=== PATIENT | female | born 1940 | race Caucasian/White ===

== ENCOUNTER → 2016-06-21 | Outpatient (CLI) | payer MEDICARE ==
[~2016-06-21] MED LIST: CALC-603 PO; LEVO100T83 PO; MULT-934 PO; OMEG100016 PO; OMEG500C7 PO; [UNRECOGNIZED DRUG - CODE] PO
== END ==
LOC: IMA 08:08
PROVIDERS: ATTEND Family Medicine
DX: D48.61 Neoplasm of uncertain behavior of right breast (principal); R92.2 Inconclusive mammogram

== ENCOUNTER → 2016-06-29 | Outpatient (CLI) | payer MEDICARE ==
[~2016-06-29] MED LIST changes: +ASCO500T9 PO; +ATOR10TA64 PO; +CETI10CA19 PO; +LACT1CAP73 PO; +LEVO75TA10 PO; +LIDOCAINE 1% 30ml (STERI-PAK) ID ONE; +LIDOCAINE 2%/EPI 1:100,000 20ml MDV ONE; +NORMAL SALINE 250 ML IV ONE; +OMEG1CAP87 PO
== END ==
LOC: IMA 12:29
PROVIDERS: ATTEND Nurse Practitioner Family
DX: D05.11 Intraductal carcinoma in situ of right breast (principal); N64.59 Other signs and symptoms in breast; R92.8 Other abnormal and inconclusive findings on diagnostic imaging of breast
CPT/HCPCS: 19081; 88305; A4648; G0206; J7050; 88361

== ENCOUNTER 2016-07-06 06:21 | Day surgery (SDC) | payer MEDICARE ==
[~2016-07-06] VITALS: Ht 154.9 cm; Wt 58.9 kg
[~2016-07-06 06:21] MED LIST changes: -LEVO100T83 PO; -LIDOCAINE 1% 30ml (STERI-PAK) ID ONE; -LIDOCAINE 2%/EPI 1:100,000 20ml MDV ONE; -NORMAL SALINE 250 ML IV ONE; -OMEG100016 PO; -OMEG500C7 PO
--- OUTSIDE RECORDS SUMMARY | 2016-07-06 06:25 | XMS REPORT | Referral Summary ---
Author Author [facility], Family Medicine Organization [facility] Address Unknown Phone Unavailable Care Team Providers Care Benzene Still Utility Operator Name Role Phone Eva Leigh Primary Care Physician [phone] Encounter [facility] [id number] Date(s): 05/11/16 - 05/11/16 [facility] [address] [place] [address] Discharge Diagnosis: Right shoulder pain Discharge Diagnosis: Osteoporosis Discharge Diagnosis: Hyperlipidemia Discharge Diagnosis: Allergic rhinitis (disorder) Discharge Diagnosis: Pain of right heel Discharge Diagnosis: Peripheral neuropathy Discharge Diagnosis: Hypothyroidism Discharge Disposition: 01-Home or Self Care Attending Physician: Filemon Leigh MD Admitting Physician: Filemon Leigh MD Vital Signs Most recent to 1 oldest [Reference Range]: Peripheral Pulse 54 bpm Rate [60-100 bpm] *LOW* (05/11/16 10:45 AM) Blood Pressure 104/60 mmHg [90-140/60-90 mmHg] (05/11/16 10:45 AM) Problem List Condition Effective Dates Status Health Status Informant Allergic rhinitis Active (disorder)(Confirmed ) Allergic Active rhinitis(Confirmed) Basal cell Active cancer-facial(Confir med) Carpal tunnel Resolved syndrome Rt(Confirmed) Diverticulosis(Confi Active rmed) Dyslipidemia(Confirm Active ed) Hypercholesterolemia Active (Confirmed) Hyperlipidemia(Confi Active rmed) Hypothyroidism Active (disorder)(Confirmed ) Hypothyroidism(Confi Active rmed) Thyroid Active disease/goiter(Confi rmed) Varicella(Confirmed) Active Allergies, Adverse Reactions, Alerts No Known Medication Allergies Medications atorvastatin 10 mg oral tablet 10 mg 1 tabs, Oral, Bedtime (once a day), # 90 tabs, 3 Refill(s), Pharmacy: [facility], 1 tabs Oral Bedtime (once a day) Start Date: 05/31/15 Status: Ordered Calcium 600+D 1 tabs, Oral, BID, 0 Refill(s) Start Date: 02/02/14 Status: Ordered Fish Oil Oral, 0 Refill(s) Start Date: 02/06/14 Status: Ordered levothyroxine 75 mcg (0.075 mg) oral tablet 75 mcg 1 tabs, Oral, Daily, # 90 tabs, 1 Refill(s), Pharmacy: [facility] Mail [facility], 1 tabs Oral Daily,x90 days Start Date: 05/11/16 Stop Date: 11/07/16 Status: Ordered Misc Medication See Instructions, EYE PROMISE 1 DAILY, 0 Refill(s) Start Date: 05/11/16 Status: Ordered multivitamin Daily, take 1 tablet by oral route every day, 0 Refill(s) Start Date: 02/02/14 Status: Ordered Probiotic Formula caps, Oral, Daily, 0 Refill(s) Start Date: 02/06/14 Status: Ordered Vitamin C 500 mg oral tablet 1 tabs, Oral, Daily, 0 Refill(s) Start Date: 02/02/14 Status: Ordered ZyrTEC 10 mg oral tablet See Instructions, take by oral route every day, 0 Refill(s) Start Date: 02/02/14 Status: Ordered Results Hematology Most recent to 1 oldest [Reference Range]: WBC [4.8-10.8 5.1 10*3/uL 10*3/uL] (05/11/16 12:45 PM) RBC [4.00-5.20] 4.46 (05/11/16 12:45 PM) Hgb [12.0-16.0 13.9 gm/dL gm/dL] (05/11/16 12:45 PM) Hct [37.0-47.0 %] 42.0 % (05/11/16 12:45 PM) MCV [82.0-99.0 fL] 94.2 fL (05/11/16 12:45 PM) MCH [27.0-32.0 pg] 31.2 pg (05/11/16 12:45 PM) MCHC [32.0-36.0 33.1 gm/dL gm/dL] (05/11/16 12:45 PM) RDW [11.5-14.5 %] 12.7 % (05/11/16 12:45 PM) Platelet [150-400 144 10*3/uL 10*3/uL] *LOW* (05/11/16 12:45 PM) MPV [8.8-14.8 fL] 11.3 fL (05/11/16 12:45 PM) Immature 0.0 % Granulocytes (05/11/16 12:45 PM) [0.0-1.0 %] Neutrophils [51-75 49 % %] *LOW* (05/11/16 12:45 PM) Lymphocytes [20-46 39 % %] (05/11/16 12:45 PM) Monocytes [4-11 %] 9 % (05/11/16 12:45 PM) Eosinophils [0-4 %] 2 % (05/11/16 12:45 PM) Basophils [0-2 %] 0 % (05/11/16 12:45 PM) Neutro Absolute 2.51 [1.90-7.00] (05/11/16 12:45 PM) Lymph Absolute 1.98 [0.80-3.30] (05/11/16 12:45 PM) [place] Absolute 0.48 [0.30-1.00] (05/11/16 12:45 PM) Eos Absolute 0.09 [0.00-0.50] (05/11/16 12:45 PM) Baso Absolute 0.02 [0.00-0.20] (05/11/16 12:45 PM) Chemistry Most recent to 1 oldest [Reference Range]: Glucose Lvl [70-99 91 mg/dL mg/dL] (05/11/16 12:45 PM) Vitamin B12 Lvl 1038 pg/mL [213-816 pg/mL] *HI* (05/11/16 12:45 PM) Chol [0-199 mg/dL] 188 mg/dL (05/11/16 12:45 PM) Trig [0-149 mg/dL] 155 mg/dL *HI* (05/11/16 12:45 PM) HDL [40-84 mg/dL] 65 mg/dL (05/11/16 12:45 PM) LDL [0-130 mg/dL] 92 mg/dL (05/11/16 12:45 PM) VLDL Cholesterol 31 mg/dL [0-28 mg/dL] *HI* (05/11/16 12:45 PM) Cardiac Risk 2.9 [0.0-5.0] (05/11/16 12:45 PM) Immunizations Given and Recorded Vaccine Date Status Refusal Reason tetanus/diphth/pertuss (Tdap) adult/adol 02/06/14 Given tetanus/diphth/pertuss (Tdap) adult/adol 05/19/03 Recorded hepatitis A adult vaccine 03/16/14 Given influenza virus vaccine, inactivated1 02/07/16 Recorded pneumococcal 13-valent conjugate vaccine 02/06/14 Given pneumococcal 23-polyvalent vaccine 05/19/03 Recorded poliovirus vaccine, inactivated 03/16/14 Given 1Result Comment: [02/08/2016] GIVEN AT [facility] Procedures Procedure Date Related Diagnosis Body Site Colonoscopy1 05/07/12 Colonoscopy 05/07/08 Miscellaneous2 Tonsillectomy 110 [id number] see nex gen 2Cataract surg bilat - Mar. 2014, Apr 2015 Social History Social History Type Response Smoking Status Never smoker Assessment and Plan Extracted from: Title: CRMMP Author: Filemon Leigh MD Date: 05/11/16 Impression and Plan Diagnosis Allergic rhinitis (disorder) (FTQ32-WA J30.9, Discharge, Medical). Hyperlipidemia (MUS00-OX E78.5, Discharge, Medical). Hypothyroidism (WFA02-MC E03.9, Discharge, Medical). Osteoporosis (NYX85-RH M81.0, Discharge, Medical). Pain of right heel (XUC27-UY M79.671, Discharge, Medical). Peripheral neuropathy (WPW59-OT G62.9, Discharge, Medical). Right shoulder pain (XZX99-XX M25.511, Discharge, Medical). Orders Orders (Selected) Outpatient Orders Future (On Hold) CBC w/ Differential: DEXA Axial Skeleton, BD Bone Density: Fasting Lipid Profile: Fasting Lipid Profile: Glucose Lvl: Vitamin B12 Level: Prescriptions Prescribed levothyroxine 75 mcg (0.075 mg) oral tablet: 75 mcg=1 tabs, Oral, Daily, for 90 days, 90 tabs, 1 Refill(s).
--- OUTSIDE RECORDS SUMMARY | 2016-07-06 06:25 | XMS REPORT | Referral Summary ---
Author Author [facility], Family Medicine Organization [facility] Address Unknown Phone Unavailable Care Team Providers Care Lead Caster Name Role Phone Eva Leigh Primary Care Physician [phone] Encounter [facility] Date(s): 02/09/15 - 02/09/15 [facility] [address] [place] [id number] Discharge Diagnosis: Idiopathic hypothyroidism Discharge Diagnosis: Left knee pain Discharge Diagnosis: Mixed hyperlipidemia Discharge Diagnosis: Dorsalgia of lumbar region Discharge Diagnosis: FH: stroke Discharge Disposition: 01-Home or Self Care Attending Physician: Filemon Leigh MD Admitting Physician: Filemon Leigh MD Vital Signs Most recent to 1 oldest [Reference Range]: Temperature Tympanic 36.1 degC [36.6-38.1 degC] *LOW* (02/09/15 8:42 AM) Peripheral Pulse 62 bpm Rate [60-100 bpm] (02/09/15 8:42 AM) Blood Pressure 128/60 mmHg [90-140/60-90 mmHg] (02/09/15 8:42 AM) Problem List Condition Effective Dates Status Health Status Informant Allergic rhinitis Active (disorder)(Confirmed ) Allergic Active rhinitis(Confirmed) Basal cell Active cancer-facial(Confir med) Carpal tunnel Resolved syndrome Rt(Confirmed) Diverticulosis(Confi Active rmed) Dyslipidemia(Confirm Active ed) Hypercholesterolemia Active (Confirmed) Hyperlipidemia(Confi Active rmed) Hypothyroidism Active (disorder)(Confirmed ) Hypothyroidism(Confi Active rmed) Thyroid Active disease/goiter(Confi rmed) Varicella(Confirmed) Active Allergies, Adverse Reactions, Alerts No Known Medication Allergies Medications Calcium 600+D 1 tabs, Oral, BID, 0 Refill(s) Start Date: 02/02/14 Status: Ordered Fish Oil Oral, 0 Refill(s) Start Date: 02/06/14 Status: Ordered Lutein Oral, Daily, 0 Refill(s) Start Date: 02/09/15 Status: Ordered multivitamin Daily, take 1 tablet by oral route every day, 0 Refill(s) Start Date: 02/02/14 Status: Ordered Probiotic Formula caps, Oral, Daily, 0 Refill(s) Start Date: 02/06/14 Status: Ordered Synthroid 88 mcg (0.088 mg) oral tablet 88 mcg 1 tabs, Oral, Daily, DUE FOR APPT WITH DR LEIGH AND LAB, # 90 tabs, 0 Refill(s), Pharmacy: [facility], 1 tabs Oral Daily,Instr:DUE FOR APPT WITH DR LEIGH AND LAB Start Date: 01/25/15 Status: Ordered Vitamin C 0 Refill(s) Start Date: 02/02/14 Status: Ordered Vitamin C 500 mg oral tablet 1 tabs, Oral, Daily, 0 Refill(s) Start Date: 02/02/14 Status: Ordered ZyrTEC 10 mg oral tablet See Instructions, take by oral route every day, 0 Refill(s) Start Date: 02/02/14 Status: Ordered Results Chemistry Most recent to 1 oldest [Reference Range]: Chol [0-199 mg/dL] 284 mg/dL *HI* (02/09/15 9:40 AM) Trig [0-149 mg/dL] 93 mg/dL (02/09/15 9:40 AM) HDL [40-84 mg/dL] 77 mg/dL (02/09/15 9:40 AM) LDL [0-130 mg/dL] 188 mg/dL *HI* (02/09/15 9:40 AM) VLDL Cholesterol 19 mg/dL [0-28 mg/dL] (02/09/15 9:40 AM) Cardiac Risk 3.7 [0.0-5.0] (02/09/15 9:40 AM) TSH with Reflex Free 0.87 T4 [0.35-4.94] (02/09/15 9:40 AM) Immunizations Vaccine Date Refusal Reason tetanus/diphth/pertuss (Tdap) adult/adol 02/06/14 tetanus/diphth/pertuss (Tdap) adult/adol 05/19/03 hepatitis A adult vaccine 03/16/14 pneumococcal 13-valent conjugate vaccine 02/06/14 pneumococcal 23-polyvalent vaccine 05/19/03 poliovirus vaccine, inactivated 03/16/14 Procedures Procedure Date Related Diagnosis Body Site Colonoscopy1 05/07/12 Colonoscopy 05/07/08 Tonsillectomy 110 [id number] see nex gen Social History Social History Type Response Smoking Status Never smoker Assessment and Plan Extracted from: Title: CRMMP Author: Filemon Leigh MD Date: 02/10/15 Assessment/Plan Dorsalgia of lumbar region FH: stroke Idiopathic hypothyroidism Left knee pain Mixed hyperlipidemia Osteoarthritis suspected in both left knee and lumbar back regions. Discussed options for management. Consider Tylenol as a first line medication. We'll check TSH to monitor her thyroid replacement. We'll also check lipids. If these are elevated, consider statin therapy in view of her stroke risk. We also discussed aspirin risk versus benefit. At this point I think that's a bit of a close call and after discussion she likely will not take aspirin. Follow-up one year or sooner as needed/based on results.
--- OUTSIDE RECORDS SUMMARY | 2016-07-06 06:25 | XMS REPORT | Referral Summary ---
Author Author [facility], Family Medicine Organization [facility] Address Unknown Phone Unavailable Care Team Providers Care Grades 1 Thru 6 Visiting Teacher Name Role Phone Eva Leigh Primary Care Physician [phone] Encounter [facility] Date(s): 04/30/15 - 04/30/15 [facility], [address] [place] [address] Discharge Diagnosis: Cough Discharge Diagnosis: Hyperlipidemia Discharge Diagnosis: Numbness of feet Discharge Disposition: 01-Home or Self Care Attending Physician: Filemon Leigh MD Admitting Physician: Filemon Leigh MD Vital Signs Most recent to 1 oldest [Reference Range]: Temperature Tympanic 36.5 degC [36.6-38.1 degC] *LOW* (04/30/15 11:23 AM) Peripheral Pulse 66 bpm Rate [60-100 bpm] (04/30/15 11:23 AM) Blood Pressure 144/63 mmHg [90-140/60-90 mmHg] *HI* (04/30/15 11:23 AM) Problem List Condition Effective Dates Status [...] tabs, Oral, Bedtime (once a day), # 30 tabs, 1 Refill(s), [id number], 1 tabs Oral Bedtime (once a day) Start Date: 02/25/15 Status: Ordered Calcium 600+D 1 tabs, Oral, [...] LAB, # 90 tabs, 0 Refill(s), [facility], 1 tabs Oral Daily,Instr:DUE FOR APPT WITH DR LEIGH AND LAB Start Date: 01/25/15 Status: Ordered Vitamin C 500 mg oral tablet 1 tabs, Oral, Daily, 0 Refill(s) Start Date: 02/02/14 Status: Ordered ZyrTEC 10 mg oral tablet See Instructions, take by oral route every day, 0 Refill(s) Start Date: 02/02/14 Status: Ordered Results No data available for this section Immunizations Vaccine Date Refusal Reason tetanus/diphth/pertuss (Tdap) adult/adol 02/06/14 tetanus/diphth/pertuss (Tdap) adult/adol 05/19/03 hepatitis A adult vaccine 03/16/14 pneumococcal 13-valent conjugate vaccine 02/06/14 pneumococcal 23-polyvalent vaccine 05/19/03 poliovirus vaccine, inactivated 03/16/14 Procedures Procedure Date Related Diagnosis Body Site Colonoscopy1 05/07/12 Colonoscopy 05/07/08 Miscellaneous2 Tonsillectomy 110 [id number] see nex gen 2Cataract surg bilat - 2014, Apr 2015 Social History Social History Type Response Smoking Status Never smoker Assessment and Plan Extracted from: Title: Office Visit Note Author: Filemon Leigh MD Date: 04/30/15 Assessment/Plan Cough Hyperlipidemia On atorvastatin. We will recheck fasting lipids. Ordered: Lipid Panel Numbness of feet I think is likely a viral upper respiratory infection. We discussed symptomatic management and signs and symptoms to watch for. Follow-up if symptoms progress. We discussed possible peripheral neuropathy and will check labs to include A1c , TSH, and vitamin B-12 level. She'll be coming in soon for fasting lipids will plan to obtain those at the same time.
--- OUTSIDE RECORDS SUMMARY | 2016-07-06 06:25 | XMS REPORT | Referral Summary ---
Author Author [facility], Family Medicine Organization [facility] Address Unknown Phone Unavailable Care Team Providers Care Accounts Receivable Coordinator Name Role Phone Eva Leigh Primary Care Physician [phone] Encounter [facility] Date(s): 02/09/15 - 02/09/15 [facility] [address] [place] [address] Discharge Diagnosis: Idiopathic hypothyroidism Discharge Diagnosis: Left [...] LAB, # 90 tabs, 0 Refill(s), Pharmacy: [facility], 1 tabs Oral Daily,Instr:DUE [...] Site Colonoscopy1 05/07/12 Colonoscopy 05/07/08 Tonsillectomy 110 [id number] see nex gen Social History Social History Type Response Smoking Status Never smoker Assessment and Plan No data available for this section
--- OUTSIDE RECORDS SUMMARY | 2016-07-06 06:25 | XMS REPORT | Referral Summary ---
Author Author [facility], Family Medicine Organization [facility] Address Unknown Phone Unavailable Care Team Providers Care Port Warden Name Role Phone Eva Leigh Primary Care Physician [phone] Encounter [facility] Date(s): 02/09/15 - 02/09/15 [facility] [address] [place] [id number] Discharge Diagnosis: Idiopathic hypothyroidism Discharge Diagnosis: Left [...] 90 tabs, 0 Refill(s), Pharmacy: [facility], 1 tabs Oral [...] Site Colonoscopy1 05/07/12 Colonoscopy 05/07/08 Tonsillectomy 110 [id number] see nex gen Social History Social History [...]
--- OUTSIDE RECORDS SUMMARY | 2016-07-06 06:25 | XMS REPORT | Referral Summary ---
Author Author [facility], Family Medicine Organization [facility] Address Unknown Phone Unavailable Care Team Providers Care Drink Box Mechanic Name Role Phone Eva Leigh Primary Care Physician [phone] Encounter [facility] Date(s): 02/09/15 - 02/09/15 [facility] [address] [place] [address] Discharge Diagnosis: Idiopathic hypothyroidism Discharge Diagnosis: Left [...] LAB, # 90 tabs, 0 Refill(s), Pharmacy: [facility], 1 tabs Oral [...] Site Colonoscopy1 05/07/12 Colonoscopy 05/07/08 Tonsillectomy 110 [id number] see nex gen Social History Social History [...]
--- OUTSIDE RECORDS SUMMARY | 2016-07-06 06:25 | XMS REPORT | Referral Summary ---
Author Author [facility], Family Medicine Organization [facility] Address Unknown Phone Unavailable Care Team Providers Care Assembling Inspector Name Role Phone Eva Leigh Primary Care Physician [phone] Encounter [facility] Date(s): 11/22/15 - 11/22/15 [facility] [address] [place] [address] Discharge Diagnosis: Insect bites Discharge Diagnosis: Left ear impacted cerumen Discharge Disposition: 01-Home or Self Care Attending Physician: Filemon Leigh MD Admitting Physician: Filemon Leigh MD Vital Signs Most recent to 1 oldest [Reference Range]: Temperature Tympanic 36.1 degC [36.6-38.1 degC] *LOW* (11/22/15 11:22 AM) Peripheral Pulse 68 bpm Rate [60-100 bpm] (11/22/15 11:22 AM) Blood Pressure 125/67 mmHg [90-140/60-90 mmHg] (11/22/15 11:22 AM) Problem List Condition Effective Dates Status [...] day), # 90 tabs, 3 Refill(s), Pharmacy: [facility], 1 tabs Oral Bedtime (once a day) Start Date: 05/31/15 Status: Ordered Calcium 600+D 1 tabs, Oral, BID, 0 Refill(s) Start Date: 02/02/14 Status: Ordered Fish Oil Oral, 0 Refill(s) Start Date: 02/06/14 Status: Ordered levothyroxine 75 mcg (0.075 mg) oral tablet See Instructions, TAKE ONE TABLET BY MOUTH DAILY, # 60 tabs, eRx: [facility] #[id number], TAKE ONE TABLET BY MOUTH DAILY Start Date: 08/30/15 Status: Ordered Lutein Oral, Daily, 0 Refill(s) [...] Colonoscopy1 05/07/12 Colonoscopy 05/07/08 Miscellaneous2 Tonsillectomy 110 [id number] see nex gen 2Cataract surg bilat - 2014, Apr 2015 Social History Social History Type Response Smoking Status Never smoker Assessment and Plan Extracted from: Title: Acute OV-Insect Bites Author: Filemon Leigh MD Date: 11/22/15 Impression and Plan Diagnosis Left ear impacted cerumen (LBE68-OT H61.22, Discharge, Medical). Insect bites (RSC10-UB W57.XXXA, Discharge, Medical).
--- OUTSIDE RECORDS SUMMARY | 2016-07-06 06:26 | XMS REPORT | Referral Summary ---
Author Author [facility], Family Medicine Organization [facility] Address Unknown Phone Unavailable Care Team Providers Care Nursing Assoc Name Role Phone Eva Leigh Primary Care Physician [phone] Encounter [facility] Date(s): 02/09/15 - 02/09/15 [facility] [address] [place] [address] Discharge Diagnosis: Idiopathic hypothyroidism Discharge Diagnosis: Left [...] LAB, # 90 tabs, 0 Refill(s), Pharmacy: [facility], 1 tabs Oral [...] Site Colonoscopy1 05/07/12 Colonoscopy 05/07/08 Tonsillectomy 110 [id number] see nex gen Social History Social History [...]
--- OUTSIDE RECORDS SUMMARY | 2016-07-06 06:26 | XMS REPORT | Referral Summary ---
Author Author [facility], Family Medicine Organization [facility] Address Unknown Phone Unavailable Care Team Providers Care Cosmetologist Name Role Phone Eva Leigh Primary Care Physician [phone] Encounter [facility] Date(s): 02/09/15 - 02/09/15 [facility] [address] [place] [address] Discharge Diagnosis: Idiopathic hypothyroidism Discharge Diagnosis: [...] LAB, # 90 tabs, 0 Refill(s), Pharmacy: [facility], 1 tabs Oral Daily,Instr:DUE [...] Site Colonoscopy1 05/07/12 Colonoscopy 05/07/08 Tonsillectomy 110 [id number] see nex gen Social History Social History [...]
--- OUTSIDE RECORDS SUMMARY | 2016-07-06 06:26 | XMS REPORT | Referral Summary ---
Author Author [facility], Family Medicine Organization [facility] Address Unknown Phone Unavailable Care Team Providers Care Manager Solution Name Role Phone Eva Leigh Primary Care Physician [phone] Encounter [facility] Date(s): 02/09/15 - 02/09/15 [facility] [address] [place] [address] Discharge Diagnosis: Idiopathic hypothyroidism Discharge Diagnosis: Left [...] LAB, # 90 tabs, 0 Refill(s), Pharmacy: [facility], 1 tabs Oral [...] Site Colonoscopy1 05/07/12 Colonoscopy 05/07/08 Tonsillectomy 110 [id number] see nex gen Social History Social History Type Response Smoking Status Never smoker Assessment and Plan No data available for this section
[2016-07-06] MEDS ORDERED: LR 1,000 ML IV SCH (07:00)
[2016-07-06] MEDS ORDERED: LIDOCAINE 1% (10mg/ml) 2ml SDV INJ ONE (07:00)
[2016-07-06 07:19] VITALS: BP 124/64; PULSE 62; RESP 14; TEMP 97.7; O2SAT 100
[2016-07-06 07:20] VITALS: Ht 154.9 cm; Wt 58.9 kg
--- NOTE | 2016-07-06 07:28 | ANESPREOP ---
Anesthesia Record Date and Time DATE: 07/06/16 TIME: 07:26 Pre-Op Diagnosis crcs Proposed Surgical Procedure COLONOSCOPY Allergies: Coded Allergies: No Known Drug Allergies (Verified Allergy, Unknown, 07/06/16) Ht/Wt/BMI Height: 5 ' 1.00 " Weight: 58.900 kg BMI: 24.5 kg/m2 Vital Signs Date Time Temp Pulse Resp B/P Pulse Ox O2 Delivery O2 Flow Rate FiO2 07/06/16 07:19 97.7 62 14 124/64 100 Room Air Medications Inpatient Medications Current Medications Medications (Trade) Dose Ordered Sig/Willa Start Time Stop Time Status Last Admin Dose Admin Lactated Ringer's (Lactated Ringers) 1,000 ml @ 30 mls/hr Q24H 07/06/16 07:00 Ascorbic Acid (Vitamin C) 250 Mg Tab.chew, 250 MG PO DAILY, (Reported) Ascorbic Acid (Vitamin C) 500 Mg Tablet, 1 TAB PO DAILY, (Reported) Atorvastatin Calcium (Atorvastatin Calcium) 10 Mg Tablet, 1 TAB PO DAILY, ( Reported) Calcium (Calcium) 500 Mg Tablet, 500 MG PO BID, (Reported) Cetirizine HCl (Zyrtec) 10 Mg Capsule, 1 CAP PO HS, (Reported) Lactobacillus Combination No.4 (Probiotic) 1 Each Capsule, 1 CAP PO DAILY, ( Reported) Levothyroxine Sodium (Levothyroxine Sodium) 75 Mcg Tablet, 1 TAB PO DAILY, ( Reported) Multivitamins (Multi-Day Vitamin) 1 Tab Tablet, 1 TAB PO DAILY, (Reported) [place]-3 Fatty Acids/Fish Oil (Fish Oil 1,200 mg Softgel) 1 Each Capsule, 2 CAP PO DAILY, (Reported) Currently on Beta Selene: No Medical/Surgical History Anesthesia PMH: Reports: Arthritis (FINGERS), Cancer (BASIL CELL-FOREHEAD 2006) , Thyroid Disease (HYPOTHYROID), Denies: *Diabetes, Anesthesia Reactions (NO AIRWAY ISSUES KNOWN), Clotting Problems, Glaucoma, Malignant Hyperthermia Smoking Status: Never smoker Has pt. smoked today?: No Use Chewing Tobacco?: No Second Hand Exposure: No Substance Use Type: does not use Substance last used: unknown Alcohol Intake: a few times a month HX of Last Menstrual Period: AROUND LATE 40'S Past Surgical History Orthopedic Surgeries: Abdominal Surgeries: Genitourinary Surgeries: Cardiac Surgeries: Endocrine Surgeries: Reproductive Surgeries: Neurological Surgeries: Ear Surgeries: Nose Surgeries: Throat Surgeries: Yes - TONSILLECTOMY Other Surgeries: Yes - MOHS Anesthesia Adverse Reactions: FOUND none Family Hx of Anesthesia Advers: none Hx of Motion Sickness: No Pertinent Findings EKG Rhythm: Sinus Rhythm Physical Exam Respiratory: Bilat breath sounds equal, Lungs clear Cardiovascular: FOUND Regular rate, rhythm, FOUND No murmur Airway Assessment Mallampati Score: I TMD: 3 Fingerbreadths Neck Extension: Good Overall Assessment: No Airway Concerns ASA: 2 Plan Anesthesia Plan: TIVA Discussion Discussed risks/options/alternatives of anesthesia and questions answered. Patient consents. Nursing pain assessment noted. Attestation Statement Prior to the delivery of any anesthetic medication, I examined the patient, developed the plan, obtained the patient's consent and discussed the risk and benefits of the procedure with the patient/guardian. ANGEL MEDRANO CRNA Jul 06, 2016 07:27
[2016-07-06] MEDS ORDERED: PROPOFOL 500mg 50 ML IV ONE (08:24)
[2016-07-06] MEDS ORDERED: LIDOCAINE 1% (10mg/ml) 2ml SDV ONE (08:24)
[2016-07-06 09:08] VITALS: BP 113/57; PULSE 65; RESP 19; TEMP 98.6; O2SAT 96
[2016-07-06 09:15] VITALS: BP 106/55; PULSE 62; RESP 16; O2SAT 97
[2016-07-06 09:30] VITALS: BP 116/61; PULSE 57; RESP 16; O2SAT 99
[2016-07-06 09:45] VITALS: BP 124/63; PULSE 58; RESP 16; O2SAT 98
--- NOTE | 2016-07-06 09:54 | ANESPO ---
Post-Op Note Date 07/06/16 Time: 09:53 Status Pt Participated in Evaluation: Pt participated in person Vital Signs Date Time Temp Pulse Resp B/P Pulse Ox O2 Delivery O2 Flow Rate FiO2 07/06/16 09:15 62 16 106/55 97 Room Air 07/06/16 09:08 98.6 Respiratory Function: Airway patent, Regular respirations Cardiovascular Function: Regular pulse Mental Status: Alert/oriented Pain Level Intensity: 0 Hydration: Taking po fluids Complications during Recovery None apparent Post-Anesthesia Notes pt. [email or web address] Follow-Up Instructions Instructions Per Surgeon Additional Information none ANGEL MEDRANO CRNA Jul 06, 2016 09:54
--- NOTE | 2016-07-06 12:10 | OPNOTEF ---
DATE OF PROCEDURE 07/06/2016 SURGEON Arjun Dumas MD PREOPERATIVE DIAGNOSIS Family history for colon cancer, colorectal cancer surveillance. . POSTOPERATIVE DIAGNOSIS Family history for colon cancer, colorectal cancer surveillance, polyp x 2 within rectal vault, polyp x 1 at 60 cm from the anal verge. PROCEDURES Colonoscopy with polypectomies via cold biopsy technique. ANESTHESIA TIVA BRIEF HISTORY/INDICATIONS Mrs. Cooper is a 76-year-old female who has family history for colon cancer within several second-degree relatives. The patient presents today to undergo a colonoscopy for further evaluation. For completeness, please refer to notes in the patient's chart. FINDINGS Upon colonoscopy there was no evidence for angiodysplastic lesions, diverticula or nell allergies. The patient was found have a total of three colonic polyps. Two were within the rectal vault and a third was located at 60 cm from the anal verge. These polyps were on the order of 5-6 mm in diameter and removed in their entirety via cold biopsy technique. DESCRIPTION OF PROCEDURE After informed consent was obtained, the patient was brought to the endoscopy suite and placed on the table in left lateral decubitus position. The patient subsequently underwent total intravenous anesthesia by the nurse black top paver operator per my request. Formal time-out was then completed. Next, digital examination was performed. Normal sphincter tone. No rectal mass was appreciated. An Olympus colonoscope was inserted in the anus and advanced with the lumen of the colon under direct visualization at all times till the cecum was ascertained. Triangulation of taenia coli, ileocecal valve and appendiceal lumen were all visualized. Scope was slowly withdrawn, again maintaining visualization of the lumen at all times. As the scope was being slowly withdrawn, a polyp was identified at 60 cm from the anal verge that was on the order of 5-6 mm in diameter. This polyp was grasped and removed in its entirety via cold biopsy technique and submitted for pathologic evaluation. Colonoscope was then continued be slowly withdrawn. As stated above, there was no evidence for angiodysplastic lesions, diverticula or nell allergies. Once the colonoscope was withdrawn back to the rectal vault, one could see two additional/synchronous polyps that were also fairly diminutive in nature on the order of about 5-6 mm in diameter. These appeared to be hyperplastic in nature but nonetheless were grasped and removed in their entirety via cold biopsy technique. J-maneuver was then performed. No worrisome perianal pathology was noted. Scope was allowed to straighten and withdrawn through the anal verge. The patient tolerated the procedure without difficulty and was sent back to the preop area in stable condition. Await the biopsy results from today's polypectomies and proceed accordingly with further recommendations thereafter. OTTO
== END 2016-07-06 09:58 | disposition home or self-care (01) ==
LOC: NSC 06:21
PROVIDERS: ATTEND Surgery
DX: Z12.11 Encounter for screening for malignant neoplasm of colon (principal); K63.5 Polyp of colon; K62.1 Rectal polyp; Z80.0 Family history of malignant neoplasm of digestive organs; E78.00 Pure hypercholesterolemia, unspecified; E03.9 Hypothyroidism, unspecified; J30.9 Allergic rhinitis, unspecified; Z79.899 Other long term (current) drug therapy
CPT/HCPCS: 45380; J7120

== ENCOUNTER 2016-07-17 06:55 | Outpatient (CLI) | payer MEDICARE ==
[2016-07-17] VITALS (19 sets, daily range): BP systolic 119–168; BP diastolic 65–101; PULSE 54–69; RESP 13–16; TEMP 97–98; O2SAT 93–100; Ht 154.9 cm; Wt 60.3 kg
[~2016-07-17] VITALS: Ht 154.9 cm; Wt 60.3 kg
[2016-07-17] MEDS ORDERED: LIDOCAINE 1% (10mg/ml) 2ml SDV INJ ONE (07:00)
[2016-07-17] MEDS ORDERED: LR 1,000 ML IV SCH ×2 (07:00→11:32)
[2016-07-17 07:53] LABS: BASOPHILS % (AUTO) 0.8 % (0-2); EOSINOPHILS # (AUTO) 0.1 T/MM3 (0-0.5); EOSINOPHILS % (AUTO) 2.8 % (0-4); HCT - HEMATOCRIT 41.5 % (36-46); HGB - HEMOGLOBIN 13.7 GM/DL (12-16); IMMATURE GRANULOCYTE # (AUTO) 0.01 T/MM3 (0.00-0.03); IMMATURE GRANULOCYTE % (AUTO) 0.3 % (0.0-0.5); LYMPHOCYTES # (AUTO) 1.7 T/MM3 (1-4.8); LYMPHOCYTES % (AUTO) 42.1 % (23-45); MEAN CORPUSCULAR HGB 30.2 UUG (26-34); MEAN CORPUSCULAR VOLUME 91.4 UM3 (80-100); MEAN PLATELET VOLUME 10.5 UM3 (9.4-12.4); MONOCYTES # (AUTO) 0.4 T/MM3 (0-0.8); MONOCYTES % (AUTO) 9.3 % (0-9.0); NEUTROPHILS #(AUTO)-ABSOLUTE 1.8 T/MM3 (1.8-7.7); NEUTROPHILS % (AUTO) 44.7 % (33-66); RED BLOOD COUNT 4.54 M/MM3 (4.00-5.20)
[2016-07-17 08:02] LABS: ANION GAP 10 MEQ/L (5-15); BUN/CREATININE RATIO 12 RATIO (6-26); CALCIUM 9.5 MG/DL (8.4-10.2); CHLORIDE 106 MEQ/L (98-107); CO2 - CARBON DIOXIDE 28 MEQ/L (22-30); CREATININE 0.9 MG/DL (0.7-1.2); GLOMERULAR FILTRATION RATE 61; GLUCOSE 95 MG/DL (65-110); POTASSIUM 3.8 MEQ/L (3.6-5); SODIUM 144 MEQ/L (134-144)
[2016-07-17] MEDS ORDERED: LIDOCAINE 1% 30ml (STERI-PAK) ONE (09:07)
--- NOTE | 2016-07-17 10:18 | DI ---
Indication: The purpose of this study is to localize the sentinel lymph node(s) for purposes of surgical planning. Procedure:NM LYMPHOSCINTIGRAPHY LYMPHOSCINTIGRAPHY: Technique: After discussing the details of the procedure, including the risks, the patient wished to proceed. Informed consent was obtained. A preprocedural pause was performed to confirm the correct patient and procedure. Approximately 0. 25 mCi of Tc-99m sulfur colloid was injected intradermally in four periareolar locations in the right breast. A total of approximately 1 mCi of Tc-99m sulfur colloid was injected. Anterior planar images were subsequently obtained. Findings: The 4 intradermal injection sites are visualized as intense focal uptake in the right breast region. Impression: Technically successful periareolar injections for the purpose of lymphoscintigraphy. Manuel Dawkins RPA/NIKOLAS performed this under my personal supervision. .
--- NOTE | 2016-07-17 11:19 | ANESPREOP ---
Anesthesia Record Date and Time DATE: 07/17/16 TIME: 11:17 Pre-Op Diagnosis Right Breast Cancer Proposed Surgical Procedure RT BREST LUMPECTOMY Allergies: Coded Allergies: No Known Drug Allergies (Verified Allergy, Unknown, 07/06/16) Ht/Wt/BMI Height: 5 ' 1.00 " Weight: 60.300 kg BMI: 25.1 kg/m2 Vital Signs Date Time Temp Pulse Resp B/P Pulse Ox O2 Delivery O2 Flow Rate FiO2 07/17/16 07:15 98.0 57 14 133/87 98 Room Air Medications Inpatient Medications Current Medications Medications (Trade) Dose Ordered Sig/Willa Start Time Stop Time Status Last Admin Dose Admin Lactated Ringer's (Lactated Ringers) 1,000 ml @ 30 mls/hr Q24H 07/17/16 07:00 07/17/16 10:12 30 MLS/HR Ascorbic Acid (Vitamin C) 250 Mg Tab.chew, 250 MG PO DAILY, (Reported) Last Taken: on 07/10/16 Ascorbic Acid (Vitamin C) 500 Mg Tablet, 1 TAB PO DAILY, (Reported) Last Taken: on 07/10/16 Atorvastatin Calcium (Atorvastatin Calcium) 10 Mg Tablet, 1 TAB PO DAILY, (Reported) Last Taken: on 07/16/16 Calcium (Calcium) 500 Mg Tablet, 500 MG PO BID, ( Reported) Last Taken: on 07/10/16 Cetirizine HCl (Zyrtec) 10 Mg Capsule, 1 CAP PO HS, (Reported) Last Taken: on 07/10/16 Lactobacillus Combination No.4 (Probiotic) 1 Each Capsule, 1 CAP PO DAILY, (Reported) Last Taken: on 07/10/16 Levothyroxine Sodium (Levothyroxine Sodium) 75 Mcg Tablet, 1 TAB PO DAILY, (Reported) Last Taken: on 07/17/16 0600 Multivitamins (Multi-Day Vitamin) 1 Tab Tablet , 1 TAB PO DAILY, (Reported) Last Taken: on 07/10/16 Bancroft-3 Fatty Acids/Fish Oil (Fish Oil 1,200 mg Softgel) 1 Each Capsule, 2 CAP PO DAILY, (Reported) Last Taken: on 07/10/16 Currently on Beta Selene: No Medical/Surgical History Anesthesia PMH: Reports: Arthritis (FINGERS), 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), Thyroid Disease (HYPOTHYROID), Denies: *Diabetes, Anesthesia Reactions (NO AIRWAY ISSUES KNOWN), Clotting Problems, Glaucoma, Malignant Hyperthermia, Renal Disease, Sleep Apnea Smoking Status: Never smoker Use Chewing Tobacco?: No Second Hand Exposure: No Substance Use Type: does not use Substance last used: unknown Alcohol Intake: a few times a month Past Surgical History Orthopedic Surgeries: Abdominal Surgeries: Genitourinary Surgeries: Cardiac Surgeries: Endocrine Surgeries: Reproductive Surgeries: Neurological Surgeries: Ear Surgeries: Nose Surgeries: Throat Surgeries: Yes - TONSILLECTOMY Other Surgeries: Yes - MOHS-C SCOPES Anesthesia Adverse Reactions: FOUND none Pertinent Findings Laboratory Tests 07/17/16 07:22 EKG Rhythm: Sinus Rhythm Physical Exam Respiratory: Bilat breath sounds equal, Lungs clear Cardiovascular: FOUND Regular rate, rhythm, FOUND No murmur Airway Assessment Mallampati Score: I TMD: 3 Fingerbreadths Neck Extension: Good Overall Assessment: No Airway Concerns ASA: 3 Plan Anesthesia Plan: LMA Discussion Discussed risks/options/alternatives of anesthesia and questions answered. Patient consents. Nursing pain assessment noted. Present: Spouse Attestation Statement Prior to the delivery of any anesthetic medication, I examined the patient, developed the plan, obtained the patient's consent and discussed the risk and benefits of the procedure with the patient/guardian. BRAYAN SEBASTIAN CRNA Jul 17, 2016 11:19
[2016-07-17] MEDS ORDERED: PROPOFOL 200mg 20 ML IV ONE (11:35)
[2016-07-17] MEDS ORDERED: SEVOFLURANE 250 ML LIQUID IH ONE (11:36)
[2016-07-17] MEDS ORDERED: GLYCOPYRROLATE 0.4mg/2ml INJECTION ONE (11:41)
[2016-07-17] MEDS ORDERED: ONDANSETRON 4mg/2ml INJECTION IV PRN ×2 (11:45→12:15)
[2016-07-17] MEDS ORDERED: METOCLOPRAMIDE 10mg/2ml INJECTION IV PRN (11:45)
[2016-07-17] MEDS ORDERED: MORPHINE SULFATE 4 MG SYRINGE IV PRN (11:45)
[2016-07-17] MEDS ORDERED: HYDROCODONE/APAP 5 mg/325 mg TABLET PO PRN (11:45)
[2016-07-17] MEDS ORDERED: FENTANYL 100mcg/2ml INJECTION ONE (11:51)
[2016-07-17] MEDS ORDERED: BUPIVACAINE 0.25%/EPI 1:200,000 30ml SDV ONE (11:55)
[2016-07-17] MEDS ORDERED: HYDROMORPHONE 2mg/ml INJECTION IV PRN (12:15)
--- NOTE | 2016-07-17 12:57 | GSPOSTPN ---
Procedure Procedure Date: Jul 17, 2016 Surgeon: Alesia Assisting Surgeon: Devin Mares Anesthesia: Local, GETA ASA: 3 Procedure Right breast needle localized lumpectomy with [place] lymph node biopsy GS Diagnosis Postop Diagnosis Right breast cancer, [place] lymph node negative on frozen section Complications Complications Estimated Blood Loss See Anesthesia Record. Vital Signs See Anesthesia and PACU record. PETRA MARES [facility] REPORTER Jul 17, 2016 12:57
[2016-07-17] MEDS ORDERED: IBUP-1724 PO (13:02)
[2016-07-17] MEDS ORDERED: DOCU100C PO (13:02)
[2016-07-17] MEDS ORDERED: HYDR-4246 PO (13:02)
--- NOTE | 2016-07-17 13:37 | NUR ---
ARRIVED PT ARRIVED TO ROOM 132 VIA CART WITH CHYNA LOERA. PT MOVED HERSELF FROM THE CART TO THE BED WITH MINIMAL ASSIST. PT ON ROOM AIR. IV FLUIDS INFUSING.
--- NOTE | 2016-07-17 14:14 | ANESPO ---
Post-Op Note Date 07/17/16 Time: 14:13 Status Pt Participated in Evaluation: Pt participated by phone Vital Signs Date Time Temp Pulse Resp B/P Pulse Ox O2 Delivery O2 Flow Rate FiO2 07/17/16 13:34 97.0 07/17/16 13:32 58 16 99 Nasal Cannula 6.00 07/17/16 13:30 141/70 Respiratory Function: Airway patent, Regular respirations Cardiovascular Function: Regular pulse Mental Status: Alert/oriented Pain Level Intensity: 3 Hydration: Taking po fluids Complications during Recovery None apparent Follow-Up Instructions Instructions Per Surgeon CHAVO ALBERTO CRNA Jul 17, 2016 14:13
--- NOTE | 2016-07-17 18:30 | NUR ---
DISCHARGE PATIENT IS ALERT AND ORIENTED X3. PATIENT VITALS ARE STABLE AND PATIENT IS ON ROOM AIR. PATIENT DENIES PAIN, CP, NAUSEA, AND SOA. PATIENT DISCHARGE INSTRUCTIONS INCLUDE: NEW MEDICATIONS, CONTINUED MEDICATIONS, FOLLOW UP APPOINTMENT, REASONS TO CALL DOCTOR AND/OR SEEK IMMEDIATE CARE, INCISION CARE, SIGNS AND SYMPTOMS OF INFECTION, ACTIVITY, DIET, AND BATHING. SCRIPT FOR NORCO GIVEN TO . IV DISCONTINUED. PERSONAL BELONGINGS RETURNED AND ID BAND REMOVED. PATIENT AMBULATED TO ED ENTRANCE WITH NURSING STAFF. PATIENT TRANSPORTED HOME FOR SELF CARE BY .
--- NOTE | 2016-07-17 20:01 | OPNOTEF ---
DATE OF SERVICE 07/17/2016 SURGEON Arjun Dumas MD BOTTOM POUNDER CEMENT SHOES Devin Mares APRN PREOPERATIVE DIAGNOSIS Infiltrating ductal carcinoma involving right breast. POSTOPERATIVE DIAGNOSIS Infiltrating ductal carcinoma involving right breast. PROCEDURE Preoperative injection of isosulfan blue, right axillary sentinel lymph node biopsy, right needle localized lumpectomy. ANESTHESIA General endotracheal. EBL/FLUIDS Please see chart. BRIEF HISTORY/INDICATIONS Mrs. Cooper is a 76-year-old female who recently was found to have a mammographic abnormality involving the right breast. She did undergo a stereotactic biopsy which unfortunately returned revealing that of an invasive ductal carcinoma. The tumor itself, however, was fortunately quite small at only about 6 mm. Patient presents today to undergo surgical management of her breast cancer. For completeness please refer to multiple notes included in the patient's chart. NARRATIVE OF PROCEDURE After informed consent was obtained the patient was brought to the operative suite and placed on the table in supine fashion. Formal time-out was then completed. Next, 0.25 mL of isosulfan blue was injected along the areolar border in a subdermal fashion at the 12 o'clock, 3 o' clock, 6 o'clock, and 9 o'clock position. Next, the right breast and right axilla was then prepped and draped in sterile fashion. Formal time-out again was completed. Navigator Neoprobe was utilized and a point of increased radioactivity was found within the right axilla. 0.25% Marcaine with epinephrine was injected overlying this location. Next, a 2-cm incision was then made overlying the area of analgesia. Dissection was then carried down through deep subcuticular tissues and into the right axilla. Two bluish lymph nodes were identified that both contained increased radioactivity as determined by the Navigator Neoprobe. One had an ex vivo count of around 800. The second had an ex vivo count of around 80. Background activity was around 10-15. Following excision of these two bluish lymph nodes that contained increased radioactivity, the right axilla was continued to be inspected via the Navigator Neoprobe as well as by palpation and inspection. No other bluish lymph nodes were identified. No palpable abnormalities were noted within the right axilla. No other areas of increased activity were noted within the right axilla via the Navigator Neoprobe. Attention was directed towards closure. The axillary incision was closed in two layers. First, the deep subcutaneous tissues were reapproximated in a running fashion with 3-0 Vicryl. The skin itself was then closed a running subcuticular fashion with 4-0 Monocryl. Pathology did return stating that both of the sentinel nodes were fortunately negative in nature. Attention was directed towards performing the lumpectomy. There was a wire exiting from the upper outer quadrant of the right breast. The wire did course in a [id number] direction. Therefore, an incision was made beneath the actual exit site of the guidewire. First, 0.25% Marcaine with epinephrine was injected about 2 cm beneath the exit of the needle localization wire. Next, a 3-4 cm incision was then made overlying the area of analgesia. Dissection was carried down into the underlying breast parenchyma. Needle localization wire was identified about 8 mm beneath the surface of the skin. The needle localization wire was then delivered up into the incision. Next, a core of breast parenchyma about 3-4 cm in diameter was then excised circumferentially around the needle localization wire down to the underlying pectoralis muscle. A marking suture was placed along the medial aspect of the specimen. The circulating nurse was also asked to label the specimen as the wire exiting anterior. Specimen was sent for mammography. Small hemoclips were then placed upon the pectoralis muscle along the edges of the lumpectomy site. Next, the lumpectomy site was carefully inspected and found be hemostatic in nature. The lumpectomy site was then closed in multiple layers in a running fashion with 3-0 Vicryl. Skin itself was then closed in a running subcuticular fashion with 4-0 Monocryl. Radiology then called to the operative suite stating that the area of concern in the microclip were included within surgical specimen and were within the central portion of the specimen and that radiographically it did appear there was a good margin surrounding the area of concern. Once both skin incisions were closed, the incisions were then covered with Dermabond. The patient is in the process of awakening from her anesthetic and will be sent back to the recovery room once deemed in stable condition. Additionally, it should be noted that Devin Mares APRN, was present throughout the entire case and played a pivotal role in providing assistance and exposure during the course of the procedure. OTTO
[2016-07-17] MEDS ORDERED: CETIRIZINE 10 MG TABLET PO SCH (22:00)
[2016-07-18] MEDS ORDERED: LEVOTHYROXINE 75 MCG TABLET PO SCH (06:30)
[2016-07-18] MEDS ORDERED: LACTOBACILLUS (15B cfu) CAPSULE PO SCH (09:00)
== END 2016-07-17 18:30 | disposition home or self-care (01) ==
LOC: IMA 06:55 → SRG 06:56 → IMA 18:30
PROVIDERS: ATTEND Surgery
DX: C50.411 Malignant neoplasm of upper-outer quadrant of right female breast (principal); Z17.1 Estrogen receptor negative status [ER-]
CPT/HCPCS: 19281; 19301; 36415; 38525; 38900; 78195; 80048; 85025; 88305; 88331; A9541; J1170; J2704; J3010; J7120

== ENCOUNTER → 2016-08-18 | Outpatient (CLI) | payer MEDICARE ==
[~2016-08-18] MED LIST changes: +DOCU100C PO; +HYDR-4246 PO; +IBUP-1724 PO
--- NOTE | 2016-08-22 09:12 | DI ---
Indication: ITS.REASON: C50.411 BREAST CA PROCEDURE: NM BONE SCAN, WHOLE BODY: Encounter: Subsequent Comparison: No relevant imaging comparison available. Technique: 26.9 mCi of Tc-99m MDP was administered intravenously. Anterior and posterior planar whole-body and spot images were obtained. FINDINGS: The scan demonstrates the expected normal biodistribution for the radiotracer. There is probable degenerative uptake seen in the right shoulder and right heel. There is no abnormal radiotracer uptake to suggest bony metastasis. IMPRESSION: No evidence of metastatic disease to the skeleton. .
== END ==
LOC: IMA 08:17
PROVIDERS: ATTEND Internal Medicine Hematology & Oncology
DX: C50.411 Malignant neoplasm of upper-outer quadrant of right female breast (principal)
CPT/HCPCS: 78306; A9503